=== PATIENT | female | born 1990 | race Caucasian/White ===

== ENCOUNTER 2024-07-02 21:15 | Emergency (ER) | payer SELFPAY ==
[2024-07-02] VITALS (16 sets, daily range): BP systolic 94–122; BP diastolic 59–76; PULSE 74–100; RESP 8–26; TEMP 36.2; O2SAT 95–100
--- NOTE | ~2024-07-02 | XR_ITS ---
Portable chest x-ray Comparison: None Clinical History: Chest pain Findings: Probable 4 mm right midlung pulmonary nodule. Lungs are the visualized clear, without focal consolidation or pleural effusion. Cardiomediastinal silhouette is unremarkable. Bones and soft tis sues are unremarkable. Impression: Probable 4 mm right midlung pulmonary nodule. Chest CT (possibly nonemergent basis) should be conside red to confirm/further evaluate. Reviewed, dictated and finalized at [facility]. Impression: Probable 4 mm right midlung pulmonary nodule. Chest CT (possibly nonemergent ba sis) should be considered to confirm/further evaluate.
--- NOTE | 2024-07-02 21:19 | ECG_ITS ---
Test Date: 2024-07-02 21:22:08 Measurements Intervals [place] Rate: 68 P: 0 LA: 116 QRS: 27 QRSD: 100 T: 46 QT: 362 QTc: 386 Interpretive Statements SINUS RHYTHM WITH SHORT LA INTERVAL INCOMPLETE RIGHT BUNDLE BRANCH BLOCK MINIMAL Q WAVES- HIGH LATERAL LEADS BORDERLINE ECG No previous ECG available for comparison Electronically Signed On 07-03-2024 07:26:15 CDT by Khalif Arguelles D.O.
[2024-07-02 21:41] LABS: Basophils Absolute Auto 0.1 K/mm3 (0.0-0.1); Basophils Percent Auto 1.5 % (0.2-1.2); Eosinophils Absolute Auto 0.1 K/mm3 (0-0.3); Eosinophils Percent Auto 1.5 % (0-4.4); Hematocrit 38.4 % (37.0-47.0); Hemoglobin 11.8 g/dL (12.0-15.0); Lymphocytes Absolute Auto 1.79 K/mm3 (0.9-3.2); Mean Corpuscular HGB Conc 30.7 g/dl (32-36); Mean Corpuscular Hemoglobin 28.4 pg (26-34); Mean Corpuscular Volume 92.3 fl (80-100); Mean Platelet Volume 11.3 fl (7.4-10.4); Monocytes Absolute Auto 0.4 K/mm3 (0.1-0.6); Monocytes Percent Auto 8.5 % (2.6-8.5); Neutrophils Absolute Auto 2.3 K/mm3 (1.3-6.7); Neutrophils Percent Auto 49.5 % (45.5-73.1); Platelet Count Result 197 k/mm3 (150-375); Red Blood Count 4.16 M/mm3 (4.2-5.4); White Blood Count 4.6 K/mm3 (4.5-10.0)
[2024-07-02 21:50] LABS: INR 0.9; Prothrombin Time 12.1 Seconds (11.1-14.7)
[2024-07-02 21:51] LABS: Partial Thromboplastin Time 21.3 Seconds (22.3-36.8)
[2024-07-02 21:52] LABS: Alanine Aminotransferase 23 U/L (6-35); Albumin Level 4.7 g/dL (3.5-5.1); Alkaline Phosphatase 45 U/L (38-126); Anion Gap 9 mmol/L (4-12); Aspartate Amino Transferase 43 U/L (14-36); Bilirubin,Total 0.3 mg/dL (0.2-1.3); Blood Urea Nitrogen 17 mg/dL (7-17); Calcium 9.1 mg/dL (8.4-10.2); Carbon Dioxide 26 mmol/L (22-30); Chloride 106 mmol/L (98-107); Estimated CRCL calculation 90 ml/min; Estimated Glomerular Filt Rate > 60; Glucose 79 mg/dL (65-110); Lipase 200 U/L (23-300); Potassium 3.9 mmol/L (3.4-5.0); Sodium 141 mmol/L (137-145)
[2024-07-02 22:04] LABS: Troponin I < 0.012 ng/mL (0.000-0.034)
--- NOTE | 2024-07-02 22:36 | ED.CHESTPAIN ---
HPI - Chest Pain General Chief Complaint: Chest Pain Stated Complaint: chest pain Time Seen by Provider: 07/02/24 21:48 Source: patient Mode of arrival: ambulatory Limitations: no limitations History of Present Illness HPI narrative: This is a 34-year-old female who presents to the ED with chief complaint of left-sided chest pain beginning yesterday morning. Reports that she flew in from [place] today and pain seem to have increased, however the pain did start before any travel to place. She reports the pain stays in the left side and is sometimes worsened with breathing. Denies exertional component. Denies associated shortness of breath, fevers, chills, cough, syncope, lightheadedness, dizziness, numbness, weakness. Denies back pain, abdominal pain, nausea. No cardiac history. No history of blood clots or estrogen use. Related Data Allergies Allergy/AdvReac Type Severity Reaction Status Date / Time No Known Allergies Allergy Verified 07/02/24 22:10 Review of Systems Review of Systems: All systems as dictated in HPI Exam Narrative: GENERAL: Well-appearing, well-nourished, and in no acute distress. HEAD: Normocephalic, atraumatic. EYES: PERRLA and EOMI. ENT: Nares clear, no rhinorrhea or epistaxis. Mucous membranes moist. Oropharynx without tonsillar hypertrophy exudate or other lesions. NECK: Supple. No adenopathy or masses. CHEST: No respiratory distress. Clear to auscultation. No wheezes rales or rhonchi HEART: Regular rate and rhythm. No murmur heard. Normal peripheral pulses. ABDOMEN: Soft, nontender, nondistended, normal active bowel sounds. MSK: Normal range of motion. No edema. SKIN: Warm, dry, no rash. NEURO: Alert and oriented x4. No focal deficits. PSYCH: Normal mood and affect. Course Vital Signs Vital signs: Vital Signs Temperature 97.1 F L 07/02/24 21:25 Pulse Rate 76 07/02/24 21:25 Respiratory Rate 18 07/02/24 21:25 Blood Pressure 122/64 07/02/24 21:25 Pulse Oximetry 100 07/02/24 21:25 Oxygen Delivery Room Air 07/02/24 21:25 Temperature 97.1 F L 07/02/24 21:25 Pulse Rate 84 08/31/24 23:33 Respiratory Rate 20 07/02/24 23:33 Blood Pressure 94/61 L 07/02/24 23:00 Pulse Oximetry 99 07/02/24 23:33 Oxygen Delivery Room Air 07/02/24 22:08 MDM - Chest Pain MDM Narrative Medical decision making narrative: This is a 34-year-old female who presents to the ED with chief complaint of chest pain times 1-2 days. Vitals are normal. ECG shows normal sinus rhythm. troponin is normal. Heart score 0. Perc rule negative for PE. Lab workup is overall unremarkable. Chest x-ray appears unremarkable as well. Discussed with the patient that the pain seems most likely consistent with a musculoskeletal like pain or pleurisy. Pt will be discharged in stable condition. Return precautions given and supportive measures discussed. Pt is understanding and agreeable with plan for discharge and follow-up with PCP. PERC Rule for Pulmonary Embolism from [email or web address] on 07/02/2024 All calculations should be rechecked by clinician prior to use RESULT SUMMARY: 0 criteria No need for further workup, as <2% chance of PE. If no criteria are positive and clinician?s pre-test probability is <15%, PERC Rule criteria are satisfied. INPUTS: Age >=0 ?> 0 = No HR >=00 ?> 0 = No O? sat on room air <95% ?> 0 = No Unilateral leg swelling ?> 0 = No Hemoptysis ?> 0 = No Recent surgery or trauma ?> 0 = No Prior PE or DVT ?> 0 = No Hormone use ?> 0 = No Lab Data 07/02/24 21:35 07/02/24 21:35 Labs: Lab Results 07/02/24 07/02/24 07/02/24 Range/Units 21:33 21:34 21:35 WBC 4.6 (4.5-10.0) K/mm3 RBC 4.16 L (4.2-5.4) M/mm3 Hgb 11.8 L (12.0-15.0) g/dL Hct 38.4 (37.0-47.0) % MCV 92.3 (80-100) fl MCH 28.4 (26-34) pg MCHC 30.7 L (32-36) g/dl RDW 14.0 (11.5-14.5) % Plt Count 19
== END 2024-07-02 23:34 | disposition home or self-care (01) ==
PROVIDERS: Emergency Medicine; Emergency Provider Physician Assistant
DX: R07.89 Other chest pain (principal)
CPT/HCPCS: 36415; 71045; 80053; 83690; 84443; 84484; 85025; 85610; 85730; 93005; 99284